=== PATIENT | female | born 1960 | race Caucasian/White ===

== ENCOUNTER 2025-04-18 08:57 | Emergency (ER) | payer OTHER, SELFPAY ==
[2025-04-18 09:02] VITALS: BP 197/104
[2025-04-18] MEDS: TORADOL 30 MG IM (09:53)
[2025-04-18] MEDS: DECADRON 10 MG PO (09:54)
--- NOTE | 2025-04-18 10:14 | ED.MUSCINJ ---
HPI-Injury
General
Chief Complaint: Musculo-Skeletal Complaint
Source: patient
Exam Limitations: none
Time Seen by Provider: 04/18/25 09:17
Nursing documentation reviewed up to this point in time: agreed with
History of Present Illness-Injury
Initial Injury comments:
See 4-year-old female with history of HTN, autoimmune hepatitis, lupus, pernicious anemia, presents with pain in left buttock that radiates down the back of her thigh and also to the dorsum of her left foot. Denies loss of control bowel or bladder,
denies saddle numbness or weakness in the legs. The only thing she can recall prior to her pain starting was bending over potting plants. Saw her PCP 4 days ago and was started on Medrol Dosepak, cyclobenzaprine and lidocaine patch. These are not
helping. She called her PCP back as she needs something for sleep and was prescribed zolpidem which is also not helping. She has an MRI scheduled in May.
Past History
Past History
ED Past Medical History: Other (Autoimmune liver hepatitis, HTN, pernicious anemia, lupus)
ED Past Surgical History: and Gynecological
Social History
Tobacco: Non-smoker
Alcohol: None
Personal:
Living: with family
Review of Systems
Review of Systems
Allergies reviewed?: Yes
All Other Systems: ROS reviewed and negative except as documented in HPI and ROS
Constitutional: Denies fever
ABD/GI: Denies abdominal pain
: Denies dysuria, incontinence or difficulty voiding
Musculoskeletal: Reports other (Left buttock pain with pain radiating down back of thigh and top of left foot.)
Neurological: Denies weakness
Phy Exam
Physical Exam
Physical Exam:
GENERAL: No acute distress. A&Ox3.
CONSTITUTIONAL: Afebrile.
EYES: clear, conjunctivae normal
ENMT: moist mucus membranes
RESPIRATORY: Regular respirations, nonlabored, lungs clear.
CARDIOVASCULAR: Regular rate and rhythm, no murmurs, no rubs.
GI: Soft, nontender, normal BS
MUSCULOSKELETAL: Moves with ease. Well perfused. Tender to palpate mid left buttock, negative bilateral straight leg raise. Full range of motion of lower extremities. Ambulates well with steady gait.
SKIN: Warm, dry, pink
PSYCH: Normal mood and affect. Well kept, interactive and appropriate
NEUROLOGIC: Awake, alert and oriented. Strength equal throughout. Patellar reflexes equal. Dorsi and plantarflexion intact. No focal neurological deficits
Injury Course
Orders/Labs/Results
Orders:
Orders
04/18/25 09:48
Dexamethasone [Decadron] 10 mg PO NOW STA
Ketorolac [Toradol] 30 mg IM NOW STA
MDM/Problems Addressed
Differential Diagnosis Includes:
Sciatica, herniated disc, cauda equina
MDM/Problems Addressed:
See 4-year-old female with history of HTN, autoimmune hepatitis, lupus, pernicious anemia, presents with pain in left buttock that radiates down the back of her thigh and also to the dorsum of her left foot. Denies loss of control bowel or bladder,
denies saddle numbness or weakness in the legs. The only thing she can recall prior to her pain starting was bending over potting plants. Saw her PCP 4 days ago and was started on Medrol Dosepak, cyclobenzaprine and lidocaine patch. These are not
helping. She called her PCP back as she needs something for sleep and was prescribed zolpidem which is also not helping. She has an MRI scheduled in May.
No infectious symptoms. No cauda equina.
I called our MRI department to see if she could get in sooner and they are booked out June.
Plan: Dose of Toradol IM here, dose of Decadron here, prescription for Tramadol sent to her pharmacy. She will follow-up with her family doctor on Sunday after the holiday weekend as needed.
Patient with no history of hypertension she will recheck her blood pressure when her pain is improved.
She is satisfied with plan.
*Critical Care Note
Total Time (30-74mins, 75-104mins- exclusive of procedures): Not Applicable
ED Attending Note
-
Portions of this chart may have been created with voice recognition software.� Occasional wrong word or��sound alike� substitutions may have occurred due to the inherent limitations of voice recognition software.
Discharge Plan
Departure
Patient Disposition: Home (Routine Discharge)
Date of Disposition: 04/18/25
Time of Disposition: 10:10
Patient with high blood pressure during this ER visit?: Yes
Condition: Fair
Discharge Problem:
Acute left-sided back pain with sciatica
Instructions: Sciatica - ED discharge instructions
Prescriptions:
New
tramadol 50 mg tablet
50 mg PO Q8H PRN (Reason: Pain) Qty: 10 0RF
Referrals:
Kayce Calloway, DO [Family Provider] - As needed
Activity Restrictions/Additional Instructions:
As we discussed, you are given a dose of Toradol injection here today for pain and inflammation.
You were also given a dose of Decadron which is a steroid to give you an extra steroid boost
Continue your current medications
I sent a prescription to your pharmacy for tramadol which is a narcotic to take every 8 hours as needed for worse pain.
See your doctor Sunday after the if you feel you need something more for pain.
Reasons to return here immediately: Fever, loss of bowel or bladder control, numbness in the saddle area that I showed you, weakness in the legs to the point where you cannot hold yourself up at all.
Interventions
Interventions:
*Risk Screen - Suicide Last Done: 04/18/25 09:02
*General Assessment Last Done: 04/18/25 09:02
*Neglect/Abuse Screening Last Done: 04/18/25 09:02
*ED- Fall Risk Assessment Last Done: 04/18/25 10:27
*ED COVID-19 Vaccine History Last Done: 04/18/25 10:27
*Nursing Disposition Last Done: 04/18/25 10:28
ED-Musculoskeletal Assessment Last Done: 04/18/25 10:27
Discharge Date and Time
Discharge Date/Time: 04/18/25 10:34
Print Language: UPPER SORBIAN
[2025-04-18 10:26] VITALS: BP 190/98
== END 2025-04-18 10:34 | disposition home or self-care (01) ==
LOC: EMR 08:57
PROVIDERS: EMERGENCY PHYSICIAN Emergency Medicine; FAMILY PHYSICIAN Internal Medicine
DX: M54.42 Lumbago with sciatica, left side (principal); I10 Essential (primary) hypertension; K75.4 Autoimmune hepatitis; M32.9 Systemic lupus erythematosus, unspecified; D51.0 Vitamin B12 deficiency anemia due to intrinsic factor deficiency
CPT/HCPCS: 99282; 96372